=== PATIENT | male | born 1955 | race American Indian/Alaskan Native ===

== ENCOUNTER 2016-10-16 13:27 | Outpatient (CLI) | payer BC ==
--- NOTE | 2016-10-16 14:37 | XRay Report ---
ROUTINE CHEST, TWO VIEWS: HISTORY: Cough. The trachea, heart, mediastinal contour, lung moreno and bony thorax are unremarkable. Scoliosis is noted. IMPRESSION: No acute cardiopulmonary process.
== END 2016-10-16 13:28 | disposition home or self-care (01) ==
LOC: XRAY 13:27
PROVIDERS: ATTEND Emergency Medicine
DX: M41.9 Scoliosis, unspecified (principal)
CPT/HCPCS: 71020

== ENCOUNTER 2016-11-10 11:44 | Emergency (ER) | payer BC ==
--- NOTE | 2016-11-10 14:32 | Emergency Department Report ---
- General Chief Complaint: Upper Respiratory Infection Stated Complaint: FLU-LIKE SYMPTOMS Time Seen by Provider: 11/10/16 13:36 Source: patient Mode of arrival: Ambulatory Limitations: No Limitations - History of Present Illness Initial Comments: 61 y/o male complain of cough ,sore throat and fever x 1 month .pt was seen 1 month by primary care doctor was told had strep throat .pt state he was given amoxicillin unknown for 10 days. MD Complaint: fever, cough, sore throat Onset/Timin -: month(s) Severity: mild Severity scale (0 -10): 7 Quality: aching Consistency: constant Improves With: nothing Worsens With: nothing Context: sick contacts Associated Symptoms: fever, cough Treatments Prior to Arrival: none - Related Data Previous Rx's Medication Instructions Recorded Last Taken Type Folic Acid [Folvite] 1 mg PO QDAY #30 tablet 04/27/15 Unknown Rx HYDROcodone/APAP 10-325 [[place] 1 each PO TID PRN #15 tablet 04/27/15 Unknown Rx 10-325 mg TAB] Thiamine [Vitamin B-1] 100 mg PO QDAY #30 tablet 04/27/15 Unknown Rx Sulfamethoxazole/Trimethoprim 1 each PO BID #20 tablet 01/13/16 Unknown Rx [Bactrim DS TAB] traMADol [Ultram 50 MG tab] 50 mg PO Q6HR PRN #20 tablet 01/13/16 Unknown Rx Acetaminophen/Codeine [Tylenol #3] 1 tab PO Q4HR PRN #20 tablet 11/10/16 Unknown Rx Ibuprofen [Motrin] 600 mg PO Q8H PRN #30 tablet 11/10/16 Unknown Rx Promethazine Dm [Phenergan DM 5 ml PO Q6H PRN #120 11/10/16 Unknown Rx 6.25-15 mg/5 ml] Allergies Allergy/AdvReac Type Severity Reaction Status Date / Time Penicillins AdvReac Vomiting Verified 08/02/15 11:29 NOVACAINE AdvReac Vomiting Uncoded 08/02/15 11:29 ED Review of Systems ROS: Stated complaint: FLU-LIKE SYMPTOMS Other details as noted in HPI Constitutional: fever, weakness. denies: chills Eyes: denies: eye pain, eye discharge, vision change ENT: throat pain. denies: ear pain Respiratory: cough. denies: shortness of breath, wheezing Cardiovascular: denies: chest pain, palpitations Endocrine: no symptoms reported Gastrointestinal: denies: abdominal pain, nausea, diarrhea Genitourinary: denies: urgency, dysuria Musculoskeletal: denies: back pain, joint swelling, arthralgia Skin: denies: rash, lesions Neurological: denies: headache, weakness, paresthesias Psychiatric: denies: anxiety, depression Hematological/Lymphatic: denies: easy bleeding, easy bruising ED Past Medical Hx - Past Medical History Hx Hypertension: No Hx Heart Attack/AMI: No Hx Congestive Heart Failure: No Hx Diabetes: No Hx Renal Disease: No Hx Asthma: No Hx COPD: No - Surgical History Hx Coronary Stent: No Hx Pacemaker: No - Social History Smoking Status: Never Smoker Substance Use Type: None - Medications Home Medications: Home Medications Medication Instructions Recorded Confirmed Last Taken Type Folic Acid [Folvite] 1 mg PO QDAY #30 tablet 04/27/15 08/02/15 Unknown Rx HYDROcodone/APAP 10-325 [[place] 1 each PO TID PRN #15 tablet 04/27/15 08/02/15 Unknown Rx 10-325 mg TAB] Thiamine [Vitamin B-1] 100 mg PO QDAY #30 tablet 04/27/15 08/02/15 Unknown Rx Sulfamethoxazole/Trimethoprim 1 each PO BID #20 tablet 01/13/16 Unknown Rx [Bactrim DS TAB] traMADol [Ultram 50 MG tab] 50 mg PO Q6HR PRN #20 tablet 01/13/16 Unknown Rx Acetaminophen/Codeine [Tylenol #3] 1 tab PO Q4HR PRN #20 tablet 11/10/16 Unknown Rx Ibuprofen [Motrin] 600 mg PO Q8H PRN #30 tablet 11/10/16 Unknown Rx Promethazine Dm [Phenergan DM 5 ml PO Q6H PRN #120 11/10/16 Unknown Rx 6.25-15 mg/5 ml] ED Physical Exam - General Limitations: No Limitations General appearance: alert, in no apparent distress - Head Head exam: Present: atraumatic, normocephalic - Eye Eye exam: Present: normal appearance Pupils: Present: normal accommodation - ENT ENT exam: Present: mucous membranes moist - Expanded ENT Exam Expanded Throat exam: Positive: tonsillar erythema, tonsillomegaly, tonsillar exudate - Neck Neck exam: Present: normal inspection - Respiratory Respiratory exam: Present: normal lung sounds bilaterally. Absent: respiratory distress, wheezes, rales - Cardiovascular Cardiovascular Exam: Present: regular rate, normal rhythm. Absent: systolic murmur, diastolic murmur, rubs, gallop - GI/Abdominal GI/Abdominal exam: Present: soft, normal bowel sounds - Rectal Rectal exam: Present: deferred - Extremities Exam Extremities exam: Present: normal inspection - Back Exam Back exam: Present: normal inspection - Neurological Exam Neurological exam: Present: alert, oriented X3 - Psychiatric Psychiatric exam: Present: normal affect, normal mood - Skin Skin exam: Present: warm, dry, intact, normal color. Absent: rash ED Course Vital Signs 11/10/16 11:52 Temperature 99.9 F H Pulse Rate 96 H Blood Pressure 142/85 O2 Sat by Pulse 94 Oximetry ED Medical Decision Making - Medical Decision Making Pharyngitis -pt was prior treat one month ago for strep .per examination of the tonsilmegaly and tonsil exudate sandra treat with Augementin rapid strep negative influenza A positive -will give medication for pain control Cough chest x ray negative Critical care attestation.: If time is entered above; I have spent that time in minutes in the direct care of this critically ill patient, excluding procedure time. ED Disposition Clinical Impression: Influenza A, Cough Pharyngitis Qualifiers: Pharyngitis/tonsillitis etiology: unspecified etiology Qualified Code(s): J02.9 - Acute pharyngitis, unspecified Disposition: DISCHARGED TO HOME OR SELFCARE Is pt being admited?: No Does the pt Need Aspirin: No Condition: Stable Instructions: Influenza (ED), Pharyngitis (ED) Additional Instructions: follow up with primary care doctor Prescriptions: Acetaminophen/Codeine [Tylenol #3] 1 tab PO Q4HR PRN #20 tablet PRN Reason: Pain Ibuprofen [Motrin] 600 mg PO Q8H PRN #30 tablet PRN Reason: Pain Promethazine Dm [Phenergan DM 6.25-15 mg/5 ml] 5 ml PO Q6H PRN #120 PRN Reason: Cough Referrals: PRIMARY CARE, [Primary Care Provider] - 3-5 Days Forms: Work/School Release Form(ED) Time of Disposition: 14:58
--- NOTE | 2016-11-10 14:34 | XRay Report ---
FINAL REPORT PROCEDURE: XR CHEST ROUTINE 2V TECHNIQUE: Two views of the chest are obtained HISTORY: cough COMPARISON: No prior studies are available for comparison. FINDINGS: Prominent dextroscoliosis is seen centered in the mid thoracic spine. The heart is normal in size. There is no focal infiltrate, pneumothorax or pleural effusion. IMPRESSION: Scoliosis is seen without evidence of acute abnormality.
[2016-11-10 15:12] VITALS: BP 118/77
== END 2016-11-10 15:11 | disposition home or self-care (01) ==
LOC: ED 11:44
DX: J09.X2 Influenza due to identified novel influenza A virus with other respiratory manifestations (principal); J02.9 Acute pharyngitis, unspecified; Z88.0 Allergy status to penicillin
CPT/HCPCS: 71020; 87116; 87400; 87430; 93005; 93010; 99283

== ENCOUNTER 2016-12-03 12:37 | Outpatient (CLI) | payer BC ==
--- NOTE | 2016-12-03 14:03 | XRay Report ---
BILATERAL RIBS: History: Left-sided chest pain. Routine views of the rib cage demonstrate normal mineralization with no significant contour abnormalities, fractures or destructive lesions. PA view of the chest demonstrates no underlying cardiopulmonary abnormalities, fluid or pneumothorax. IMPRESSION: Unremarkable bilateral ribs.
== END 2016-12-03 12:38 | disposition home or self-care (01) ==
LOC: XRAY 12:37
PROVIDERS: ATTEND Internal Medicine
DX: J20.9 Acute bronchitis, unspecified (principal)
CPT/HCPCS: 71110

== ENCOUNTER 2017-01-02 10:52 | Emergency (ER) | payer BC ==
[2017-01-02 11:06] VITALS: BP 130/80
--- NOTE | 2017-01-02 22:08 | Emergency Department Report ---
Entered by JESSICA GEIGER, acting as scribe for BRANT ENCINAS NP. - General Chief complaint: Wound/Laceration Stated complaint: FACE LACERATION Time Seen by Provider: 01/02/17 11:17 Source: patient Mode of arrival: Ambulatory Limitations: No Limitations - History of Present Illness Initial comments: 61 year old male with no significant PMHx presents to the ED c/o a pimple bleed on left cheek since this morning at 09:30. The patient states that he picked a scab on his left cheek and it has continued to bleed. Denies fever, chills, nausea, vomiting, left cheek pain, numbness, and purulent drainage. He reports taking Clarimycin and 600mg Ibuprofen for a recent flu. He denies being on any blood thinners, but reports Hx of bleeding easily. NKDA. IBRY complaint: other (1 mm pimple bleed left cheek) -: Sudden Location: face (left cheek) Severity: mild Severity scale (0 -10): 0 Quality: constant Consistency: constant Improves with: none Worsens with: movement Associated symptoms: denies other symptoms Treatments Prior to Arrival: other (4x4 dressing) - Related Data Previous Rx's Medication Instructions Recorded Last Taken Type Folic Acid [Folvite] 1 mg PO QDAY #30 tablet 04/27/15 Unknown Rx HYDROcodone/APAP 10-325 [[place] 1 each PO TID PRN #15 tablet 04/27/15 Unknown Rx 10-325 mg TAB] Thiamine [Vitamin B-1] 100 mg PO QDAY #30 tablet 04/27/15 Unknown Rx Sulfamethoxazole/Trimethoprim 1 each PO BID #20 tablet 01/13/16 Unknown Rx [Bactrim DS TAB] traMADol [Ultram 50 MG tab] 50 mg PO Q6HR PRN #20 tablet 01/13/16 Unknown Rx Acetaminophen/Codeine [Tylenol #3] 1 tab PO Q4HR PRN #20 tablet 11/10/16 Unknown Rx Ibuprofen [Motrin] 600 mg PO Q8H PRN #30 tablet 11/10/16 Unknown Rx Promethazine Dm [Phenergan DM 5 ml PO Q6H PRN #120 11/10/16 Unknown Rx 6.25-15 mg/5 ml] Allergies Allergy/AdvReac Type Severity Reaction Status Date / Time No Known Allergies Allergy Unverified 01/02/17 11:03 Abscess Boil HPI - HPI Chief Complaint: Wound/Laceration Stated Complaint: FACE LACERATION Time Seen by Provider: 01/02/17 11:17 Duration: Today (09:30) Location: Other (left cheek) Severity: None History: Yes Previous History (easily bleed), No Fever, No Pain, No Purulent Drainage, No Numbness, No Foreign Body, No Insect Bite Home Medications: Previous Rx's Medication Instructions Recorded Last Taken Type Folic Acid [Folvite] 1 mg PO QDAY #30 tablet 04/27/15 Unknown Rx HYDROcodone/APAP 10-325 [[place] 1 each PO TID PRN #15 tablet 04/27/15 Unknown Rx 10-325 mg TAB] Thiamine [Vitamin B-1] 100 mg PO QDAY #30 tablet 04/27/15 Unknown Rx Sulfamethoxazole/Trimethoprim 1 each PO BID #20 tablet 01/13/16 Unknown Rx [Bactrim DS TAB] traMADol [Ultram 50 MG tab] 50 mg PO Q6HR PRN #20 tablet 01/13/16 Unknown Rx Acetaminophen/Codeine [Tylenol #3] 1 tab PO Q4HR PRN #20 tablet 11/10/16 Unknown Rx Ibuprofen [Motrin] 600 mg PO Q8H PRN #30 tablet 11/10/16 Unknown Rx Promethazine Dm [Phenergan DM 5 ml PO Q6H PRN #120 11/10/16 Unknown Rx 6.25-15 mg/5 ml] Allergies/Adverse Reactions: Allergies Allergy/AdvReac Type Severity Reaction Status Date / Time No Known Allergies Allergy Unverified 01/02/17 11:03 ED Review of Systems Comment: All other systems reviewed and negative Constitutional: denies: chills, fever, weakness (generalized), other (tingling) Respiratory: denies: cough, shortness of breath, SOB with exertion, SOB at rest Cardiovascular: denies: chest pain, palpitations, dyspnea on exertion, orthopnea Gastrointestinal: denies: nausea, vomiting Musculoskeletal: denies: other (left cheek pain) Skin: other (open pimple on left cheek with continuous bleeding, but denies purulent drainage). denies: rash Neurological: denies: weakness, numbness ED Past Medical Hx - Past Medical History Hx Hypertension: No Hx Heart Attack/AMI: No Hx Congestive Heart Failure: No Hx Diabetes: No Hx Renal Disease: No Hx Asthma: No Hx COPD: No - Surgical History Hx Coronary Stent: No Hx Pacemaker: No - Social History Smoking Status: Never Smoker Substance Use Type: None - Medications Home Medications: Home Medications Medication Instructions Recorded Confirmed Last Taken Type Folic Acid [Folvite] 1 mg PO QDAY #30 tablet 04/27/15 08/02/15 Unknown Rx HYDROcodone/APAP 10-325 [[place] 1 each PO TID PRN #15 tablet 04/27/15 08/02/15 Unknown Rx 10-325 mg TAB] Thiamine [Vitamin B-1] 100 mg PO QDAY #30 tablet 04/27/15 08/02/15 Unknown Rx Sulfamethoxazole/Trimethoprim 1 each PO BID #20 tablet 01/13/16 Unknown Rx [Bactrim DS TAB] traMADol [Ultram 50 MG tab] 50 mg PO Q6HR PRN #20 tablet 01/13/16 Unknown Rx Acetaminophen/Codeine [Tylenol #3] 1 tab PO Q4HR PRN #20 tablet 11/10/16 Unknown Rx Ibuprofen [Motrin] 600 mg PO Q8H PRN #30 tablet 11/10/16 Unknown Rx Promethazine Dm [Phenergan DM 5 ml PO Q6H PRN #120 11/10/16 Unknown Rx 6.25-15 mg/5 ml] ED Physical Exam - General Limitations: No Limitations General appearance: alert, in no apparent distress - Head Head exam: Present: atraumatic, normocephalic - Eye Eye exam: Present: normal appearance, PERRL, EOMI - ENT ENT exam: Present: normal exam, mucous membranes moist - Neck Neck exam: Present: normal inspection, full ROM. Absent: tenderness, lymphadenopathy - Respiratory Respiratory exam: Present: normal lung sounds bilaterally. Absent: respiratory distress, wheezes, rales, rhonchi, stridor - Cardiovascular Cardiovascular Exam: Present: regular rate, normal rhythm. Absent: systolic murmur, diastolic murmur, rubs, gallop - GI/Abdominal GI/Abdominal exam: Present: soft. Absent: distended - Extremities Exam Extremities exam: Present: normal inspection, full ROM. Absent: tenderness - Back Exam Back exam: Present: normal inspection, full ROM. Absent: tenderness - Neurological Exam Neurological exam: Present: alert, oriented X3 - Psychiatric Psychiatric exam: Present: normal affect, normal mood - Skin Skin exam: Present: warm, dry. Absent: rash, pallor, abrasion, ecchymosis ED Course Vital Signs 01/02/17 11:03 Temperature 98.4 F Pulse Rate 84 Respiratory 16 Rate Blood Pressure 130/80 O2 Sat by Pulse 94 Oximetry - Reevaluation(s) Reevaluation #1: 01/02/17 13:16 Surgicel placed in the left cheek of the face where ulceration located. Bleeding has decreased slightly. No signs of distress. Nontoxic appearance. 01/02/17 13:17 ED Medical Decision Making - Medical Decision Making Ed course: 61-year-old male that presents with a laceration 1 mm the left side of his cheek. 1- patient does not seem toxic or ill appearance. 2- I applied Surgicel to the ulceration site. The left cheek. Slightly decreased in bleeding. 3- I explained patient needs laboratory work for bleeding risks. Patient refused to get any labs done. Stated all labs are normal and his primary care provider. 4- Dr. Fontaine is aware of the case and discharge plan. 5- at this time the patient seems comfortable with no questions. 6- patient understands discharge instructions and plan. Stated he will follow- up with his primary care doctor JERAMIE. ED Disposition Clinical Impression: Skin ulcer of cheek Disposition: DISCHARGED TO HOME OR SELFCARE Is pt being admited?: No Does the pt Need Aspirin: No Condition: Stable Instructions: Acute Wound Care (ED) Additional Instructions: They followed up with her primary care doctor as was possible. If any signs of visit or worsening such as severe bleeding, uncontrollable bleeding, chest pain or shortness of breath, report back emergency room. Referrals: PRIMARY CARE, [Referring] - JERAMIE Forms: Work/School Release Form(ED) This documentation as recorded by the JUANJO molina JASMINE,accurately reflects the service I personally performed and the decisions made by ,BRANT ENCINAS, RIANA.
== END 2017-01-02 13:28 | disposition home or self-care (01) ==
LOC: ED 10:52
DX: L98.499 Non-pressure chronic ulcer of skin of other sites with unspecified severity (principal)
CPT/HCPCS: 99282

== ENCOUNTER 2017-01-15 11:42 | Outpatient (CLI) | payer BC ==
[2017-01-15 13:26] LABS: Basophils % (Auto) 0.4 % (0.0-1.8); Eosinophils % (Auto) 2.2 % (0.0-4.3); Hematocrit 42.4 % (35.5-45.6); Hemoglobin 14.5 gm/dl (11.8-15.2); Mean Corpuscular HGB Conc 34 % (32-34); Mean Corpuscular Hemoglobin 38 pg (28-32); Mean Corpuscular Volume 110 fl (84-94); Red Blood Count 3.87 M/mm3 (3.65-5.03); Red Cell Distribution Width 14.8 % (13.2-15.2); White Blood Count 2.6 K/mm3 (4.5-11.0)
[2017-01-15 13:37] LABS: Platelet Count 58 K/mm3 (140-440)
[2017-01-15 13:40] LABS: INR 1.26 (0.87-1.13)
[2017-01-15 13:41] LABS: Partial Thromboplastin Time 33.4 Sec. (24.2-36.6)
[2017-01-15 14:14] LABS: Alanine Aminotransferase 101 units/L (7-56); Albumin 2.9 g/dL (3.9-5); Albumin/Globulin Ratio 0.6 %; Alkaline Phosphatase 188 units/L (35-129); Anion Gap 21 mmol/L; Bilirubin,Direct 1.5 mg/dL (0-0.2); Bilirubin,Indirect 1.8 mg/dL; Bilirubin,Total 3.3 mg/dL (0.1-1.2); Blood Urea Nitrogen 8 mg/dL (9-20); Calcium 8.9 mg/dL (8.4-10.2); Carbon Dioxide 21 mmol/L (22-30); Glucose 157 mg/dL (75-100); Magnesium 1.8 mg/dL (1.7-2.3); Potassium 4.1 mmol/L (3.6-5.0); Sodium 137 mmol/L (137-145); Total Protein 7.8 g/dL (6.3-8.2)
== END 2017-01-15 11:43 | disposition home or self-care (01) ==
LOC: LAB 11:42
PROVIDERS: ATTEND Emergency Medicine
DX: K74.60 Unspecified cirrhosis of liver (principal); K76.89 Other specified diseases of liver
CPT/HCPCS: 36415; 80048; 80074; 82140; 83735; 85025; 85610; 85730; 86850; 86900; 86901

== ENCOUNTER 2017-03-03 10:37 | Outpatient (CLI) | payer BC ==
[2017-03-03] MEDS ORDERED: NACL ONE (10:54)
--- NOTE | 2017-03-03 12:25 | Cat Scan Report ---
CT CHEST WITH CONTRAST INDICATION: Hepatic metastases. COMPARISON: 02/09/2017. FINDINGS: Chest CT performed following intravenous administration of 100 cc of Omnipaque 300. Stable, normal heart size. Grossly unremarkable great vessels. Patent central airway. No significant adenopathy. Normal imaged thyroid. Interval resolution of bibasilar atelectasis and minimal fluid with possible slight scarring. No suspicious lung mass. Nonspecific distal esophageal wall prominence/thickening, not excluded for gastroesophageal reflux and/or hiatal hernia, amongst others. Innumerable hepatic masses again seen measuring up to approximately 9.5 cm and the left lobe. Few small hepatic calcifications. Stable 1.3 cm right renal cyst superiorly. Gastrohepatic lymph nodes enlarged approximately 1.5 cm as on axial image 208, series 2. [id number] S-shaped thoracolumbar scoliosis. Right eighth rib fracture displaced by approximately 1 mm laterally with minimal callus formation, if any, again noted. CONCLUSION: 1. Interval clearing of bibasilar atelectasis and minimal fluid, as described. No significant acute chest process suspected at this time. 2. Various other incidental findings, including innumerable hepatic metastases, upper abdominal lymphadenopathy, mild distal esophageal prominence/thickening, scoliosis and right lower rib fracture laterally, amongst others, as above. Thank you for the opportunity to participate in this patient's care.
== END 2017-03-03 10:38 | disposition home or self-care (01) ==
LOC: CT 10:37
PROVIDERS: ATTEND Internal Medicine Gastroenterology
DX: C78.7 Secondary malignant neoplasm of liver and intrahepatic bile duct (principal); J98.11 Atelectasis; R59.1 Generalized enlarged lymph nodes; M41.84 Other forms of scoliosis, thoracic region; S22.31XA Fracture of one rib, right side, initial encounter for closed fracture; X58.XXXA Exposure to other specified factors, initial encounter; Y93.89 Activity, other specified; Y92.89 Other specified places as the place of occurrence of the external cause; Y99.8 Other external cause status
CPT/HCPCS: 71260; Q9967

== ENCOUNTER 2017-03-13 06:39 | Day surgery (SDC) | payer BC ==
[2017-03-13 07:56] LABS: Basophils % (Auto) 0.7 % (0.0-1.8); Eosinophils % (Auto) 1.4 % (0.0-4.3); Hematocrit 43.5 % (35.5-45.6); Mean Corpuscular HGB Conc 35 % (32-34); Mean Corpuscular Hemoglobin 37 pg (28-32); Mean Corpuscular Volume 107 fl (84-94); Red Blood Count 4.07 M/mm3 (3.65-5.03); Red Cell Distribution Width 15.2 % (13.2-15.2); White Blood Count 3.8 K/mm3 (4.5-11.0)
[2017-03-13 08:07] LABS: INR 1.12 (0.87-1.13)
[2017-03-13 08:08] LABS: Partial Thromboplastin Time 32.7 Sec. (24.2-36.6)
[2017-03-13 08:16] LABS: Platelet Count 61 K/mm3 (140-440)
[2017-03-13] MEDS ORDERED: SUBLIMAZE IV ONE (10:00)
[2017-03-13] MEDS ORDERED: VERSED IV ONE (10:00)
--- NOTE | 2017-03-13 14:13 | Cat Scan Report ---
CT BIOPSY LIVER HISTORY: Liver mass DESCRIPTION OF PROCEDURE: Informed consent was obtained. Sterile technique was utilized. Conscious sedation was accomplished with Versed and fentanyl. Independent cardiorespiratory monitoring by RN. The patient was sedated for 15 minutes. Intraobserver time was [address] guidance, a 19-gauge introducer needle was advanced into an approximate 11 cm left hepatic lobe mass. A single 20-gauge core biopsy was obtained for pathology. The sample was deemed adequate by the pathologist on site. No complications. IMPRESSION: Successful CT-guided biopsy of an 11 cm left hepatic lobe mass.
[2017-03-13 15:16] VITALS: BP 125/81
== END 2017-03-13 15:30 | disposition home or self-care (01) ==
LOC: OPU 06:39 → EDSTATUS 07:30 → OPU 15:30
PROVIDERS: ATTEND Internal Medicine Hematology
DX: R16.0 Hepatomegaly, not elsewhere classified (principal)
CPT/HCPCS: 36415; 47000; 77012; 85025; 85610; 85730; 88307; 88333; 88342; J2250; J3010